=== PATIENT | female | born 1975 | race Hispanic/Latino ===

== ENCOUNTER 2025-05-14 12:58 | Emergency (ER) | payer OTHER ==
[~2025-05-14] VITALS: Ht 160 cm; Wt 59.0 kg
[~2025-05-14 12:58] MED LIST: AZITHROMYCIN250 MG PO; ULTRAM 50MG50 MG PO; VENTOLIN HFA18 GM INH
[2025-05-14 14:03] VITALS: TEMP 98.4
[2025-05-14] MEDS ORDERED: KETOROLAC TROMETHAMINE 30 MG/ML VIAL IV STA (14:15)
[2025-05-14 14:34] LABS: BASOPHILS % 0.3 % (0.0-1.0); EOSINOPHILS % 1.3 % (0.0-6.0); LYMPHOCYTES % 26.0 % (18.0-39.1); MONOCYTES % 5.3 % (4.4-11.3); NEUTROPHILS % 66.9 % (38.7-80.0); RED CELL DISTRIBUTION WIDTH 13.5 % (11.7-14.4)
[2025-05-14 14:46] LABS: INR 0.93
[2025-05-14 14:53] LABS: EST GLOMERULAR FILTRATION RATE 98 ML/MIN (>=60)
[2025-05-14] MEDS: DIPHENHYDRAMINE HCL INJ 50 MG/ML VIAL IV ONE (15:19)
[2025-05-14] MEDS: SODIUM CHLORIDE 0.9% 1000ML 1,000 ML IV STA (15:19)
[2025-05-14] MEDS: ACETAMIN/BUTALBITAL/CAFFEINE TAB PO ONE (15:20)
[2025-05-14 18:00] VITALS: PULSE 64; RESP 16; O2SAT 100
[2025-05-14] MEDS ORDERED: GABAPENTIN300 MG PO (18:33)
== END 2025-05-14 18:51 | disposition home or self-care (01) ==
LOC: ER 14:16
DX: R20.0 Anesthesia of skin (principal); M79.602 Pain in left arm; R51.9 Headache, unspecified; H53.8 Other visual disturbances
CPT/HCPCS: 36415; 70450; 71045; 80053; 83735; 84484; 85025; 85610; 85730; 93005; 99284; J1200; J7030; J1885